=== PATIENT | female | born 1970 | race Caucasian/White ===

== ENCOUNTER 2020-08-20 18:17 | Emergency (ER) | payer MEDICAID ==
[~2020-08-20] VITALS: Ht 160 cm; Wt 63.6 kg
[2020-08-20 18:58] VITALS: BP 163/92
== END 2020-08-20 23:14 | disposition left against medical advice (07) ==
LOC: ER 18:19
DX: Z00.8 Encounter for other general examination (principal); Z53.21 Procedure and treatment not carried out due to patient leaving prior to being seen by health care provider

== ENCOUNTER 2020-08-21 07:09 | Emergency (ER) | payer MEDICAID ==
[~2020-08-21] VITALS: Ht 160 cm; Wt 63.7 kg
[2020-08-21 07:16] VITALS: BP 138/72
[2020-08-21] MEDS ORDERED: diphenoxylate/atropine tablet (Lomotil) PO ONE (09:50)
== END 2020-08-21 11:11 | disposition left against medical advice (07) ==
LOC: ER 07:10
DX: F15.90 Other stimulant use, unspecified, uncomplicated (principal); R11.10 Vomiting, unspecified; R19.7 Diarrhea, unspecified; Z88.2 Allergy status to sulfonamides; Z91.040 Latex allergy status; Z98.891 History of uterine scar from previous surgery
CPT/HCPCS: 99281; 99283